=== PATIENT | female | born 1975 | race Caucasian/White ===

== ENCOUNTER 2020-09-29 08:07 | Day surgery (SDC) | payer BC, OTHER ==
[~2020-09-29] VITALS: Ht 160 cm; Wt 62.0 kg
--- NOTE | 2020-09-29 08:25 | NUR ---
History, Chart, Medications and Allergies reviewed before start of procedure. Patient states colon prep results clear. Patient States Post-Procedure ride home has been arranged.
[2020-09-29] MEDS ORDERED: Vitamin D2000 UNIT PO (08:50)
--- NOTE | 2020-09-29 09:07 | NUR ---
09/29/20 0906 INOCENCIO CODY History, Chart, Medications and Allergies reviewed before start of procedure. 3-LEAD EKG REVIEWED WITH PHYSICIAN PRIOR TO START OF PROCEDURE. O2 VIA N/C INTACT THROUGHOUT SEDATION/PROCEDURE. MONITOR INTACT WITH CONTINUOUS PULSE OXIMETRY AND INTERMITTENT BP. PATIENT DETERMINED TO BE ASA APPROPRIATE FOR PROPOFOL SEDATION PRIOR TO START OF PROCEDURE BY DR. MUNSON
--- NOTE | 2020-09-29 09:52 | NUR ---
Discharge instructions reviewed with patient. Patient verbalizes understanding. Copy given to patient to take home.
--- NOTE | 2020-09-29 09:55 | NUR ---
Discharged via wheelchair to private car for ride home.
== END 2020-09-29 10:00 | disposition home or self-care (01) ==
LOC: ORSCMMR 08:07 → ORD 09:00 → ORSCMMR 10:00
PROVIDERS: Internal Medicine Gastroenterology
PROC: 0DBL8ZX Excision of Transverse Colon, Via Natural or Artificial Opening Endoscopic, Diagnostic (ICD-10-PCS; principal; 2020-09-29 09:00)
DX: Z12.11 Encounter for screening for malignant neoplasm of colon (principal); D12.3 Benign neoplasm of transverse colon; Z80.0 Family history of malignant neoplasm of digestive organs
CPT/HCPCS: 88305; J2250; J2704; J7120